=== PATIENT | female | born 1940 | race Caucasian/White ===

== ENCOUNTER → 2016-09-13 | Outpatient (CLI) | payer MEDICARE ==
--- NOTE | 2016-09-13 14:08 | RAD ---
Exam: PA and lateral chest radiograph History: COPD. Comparison: CT chest 12/31/2009. Findings: Cardiac silhouette appears within normal limits for size. No pneumothorax or pleural effusion is seen. There is accentuation of interstitial markings, suggesting fibrotic change. There is also evidence of multiple small pulmonary nodules which were seen on previous study. It is somewhat difficult to assess change in size of nodules given differences in modality, but it does appear that the pulmonary nodules are less evident on current examination than on comparison study. Left shoulder arthroplasty is seen. Impression: 1. Increased interstitial markings, suggesting fibrotic change. 2. Multiple bilateral pulmonary nodules which were seen on previous study, although definitive comparison is difficult given differences in modality. The nodules may be less apparent on current examination than on previous. CT imaging could be performed if clinically indicated.
== END | disposition home or self-care (01) ==
LOC: DXRADRC 13:47
PROVIDERS: ATTEND Physician Assistant Medical
DX: J44.9 Chronic obstructive pulmonary disease, unspecified (principal)
CPT/HCPCS: 71020

== ENCOUNTER → 2016-09-28 | Outpatient (CLI) | payer MEDICARE ==
--- NOTE | 2016-09-28 11:01 | RAD ---
Indication lung nodule. Note is made of a plain film examination of the chest 09/13/[address] examination of the chest 12/31/2009. Noncontrast imaging through the chest was performed. Imaging through the upper abdomen is unremarkable. Occasional pleural calcifications are noted suggesting prior asbestos exposure. The thoracic aorta appears grossly normal. Moderately extensive coronary artery calcification is noted. There is no significant hilar or mediastinal adenopathy. Multiple calcified mediastinal lymph nodes are noted. The main pulmonary artery is slightly prominent. Clinical correlation as to the possibility for pulmonary hypertension advised. There are multiple pulmonary nodules. The nodules, however, are less conspicuous than on the previous exam. The lack of any enlargement and the overall diminution in size are compatible with a benign process. Nodules may be a reflection of granulomatous disease. Scattered areas of pleural-parenchymal scarring are noted appearing similar to also somewhat improved relative to the previous study. A definite acute or new finding is not seen. IMPRESSION: Chronic changes in the chest. Pulmonary nodules are seen but they are less conspicuous than on the examination almost 8 years ago. Scattered areas of pleural-parenchymal scarring are seen. No acute finding apparent in the chest PQRS Compliance Statement: One or more of the following individualized dose reduction techniques were utilized for this examination: 1. Automated exposure control 2. Adjustment of the mA and/or kV according to patient size 3. Use of iterative reconstruction technique
== END | disposition home or self-care (01) ==
LOC: CT 10:17
PROVIDERS: ATTEND Physician Assistant Medical
DX: J98.4 Other disorders of lung (principal); R91.8 Other nonspecific abnormal finding of lung field
CPT/HCPCS: 71250

== ENCOUNTER → 2016-11-16 | Outpatient (CLI) | payer MEDICARE ==
--- NOTE | 2016-11-16 12:39 | RAD ---
Indication chronic renal disease. Grayscale imaging targeted to the kidneys was performed. No similar imaging is available. The right kidney measures 12 x 4 x 3.8 cm. There are several cysts seen associated with the right kidney the largest measuring approximately 4.5 cm. No definite solid mass or hydronephrosis is seen. The left kidney measures 9.5 x 4.6 x 3.7 cm. There are several cysts seen associated with the left kidney but overall smaller than on the right. The largest measuring approximately 1.3 cm. The urinary bladder appears grossly normal. IMPRESSION: Bilateral renal cysts.
== END | disposition home or self-care (01) ==
LOC: US 10:51
PROVIDERS: ATTEND Internal Medicine Nephrology
DX: N18.2 Chronic kidney disease, stage 2 (mild) (principal); N28.1 Cyst of kidney, acquired
CPT/HCPCS: 76770

== ENCOUNTER → 2017-01-19 | Outpatient (CLI) | payer MEDICARE ==
--- NOTE | 2017-01-19 16:04 | RAD ---
AP oblique and lateral views of the lumbar spine were obtained as well as a coned view targeted to the lumbosacral junction. There is very minimal anterolisthesis of L4 relative to L5. There is some disc space narrowing with associated degenerative endplate changes at L2-3. Mild disc space narrowing is seen at L1-2, L4-5 and L5-S1. Vertebral height is well maintained. There are facet degenerative changes in the mid and lower lumbar spine. An acute bony finding is not seen. Vascular calcification is noted. IMPRESSION: Spondylitic changes. No acute finding seen
--- NOTE | 2017-01-19 16:10 | RAD ---
Indication pain. AP and lateral views of the sacrococcyx were obtained. No bony abnormality is seen.
== END | disposition home or self-care (01) ==
LOC: DXRADRC 15:41
PROVIDERS: ATTEND Physician Assistant Medical
DX: M54.41 Lumbago with sciatica, right side (principal)
CPT/HCPCS: 72110; 72220

== ENCOUNTER 2018-12-12 13:15 | Inpatient (IN) | payer MEDICARE ==
[2018-12-12] VITALS (8 sets, daily range): BP systolic 81–131; BP diastolic 43–59
[~2018-12-12] VITALS: Ht 149.9 cm; Wt 75.9 kg
[2018-12-12] MEDS ORDERED: NORMAL SALINE IV SCH (14:11)
[2018-12-12 14:20] LABS: BASO # 0.1 x10^3/uL (0.0-0.2); BASO % 1 % (0-3); EOS % 0 % (0-3); HEMATOCRIT 36.3 % (36.0-47.0); HEMOGLOBIN 11.9 g/dL (12.0-15.5); LYMPH # 1.4 x10^3/uL (1.0-4.8); LYMPH % 6 % (24-48); MEAN CORPUSCULAR HEMOGLOBIN 31 pg (25-35); MEAN CORPUSCULAR HGB CONC 33 g/dL (31-37); MEAN CORPUSCULAR VOLUME 93 fL (79-100); MONO # 2.2 x10^3/uL (0.0-1.1); MONO % 10 % (0-9); NEUT % 83 % (31-73); PLATELET COUNT 197 x10^3/uL (140-400); RED BLOOD COUNT 3.89 x10^6/uL (3.50-5.40); RED CELL DISTRIBUTION WIDTH 14.6 % (11.5-14.5); WHITE BLOOD COUNT 22.8 x10^3/uL (4.0-11.0)
[2018-12-12 14:32] LABS: ALBUMIN 2.6 g/dL (3.4-5.0); ALBUMIN/GLOBULIN RATIO 0.6 (1.0-1.7); CALCIUM 9.5 mg/dL (8.5-10.1); CREATININE 1.8 mg/dL (0.6-1.0); GFR 27.1; POTASSIUM 3.9 mmol/L (3.5-5.1); TOTAL BILIRUBIN 0.7 mg/dL (0.2-1.0); TOTAL PROTEIN 7.1 g/dL (6.4-8.2)
--- NOTE | 2018-12-12 14:55 | RAD ---
Chest radiograph 12/12/2018 2:11 PM INDICATION: Hypotension, altered mental status COMPARISON: CT chest September 28, 2016 TECHNIQUE: Portable upright frontal view of the chest is provided. FINDINGS: The cardiomediastinal silhouette is within normal limits. Perihilar interstitial changes may reflect interstitial edema versus interstitial pneumonitis. Bandlike density in the left upper lobe is stable dating back to 2016 and most favor scarring. Trace right pleural effusion. No pneumothorax. Left shoulder arthroplasty is identified. IMPRESSION: Bilateral perihilar interstitial prominence may reflect interstitial edema versus interstitial pneumonitis. Recommend follow-up to resolution. Electronically signed by: Mona Romero MD (12/12/2018 2:51 PM) [email or web address]
[2018-12-12] MEDS ORDERED: PIP/TAZO PER PHARMACY MC PRN (15:45)
--- NOTE | 2018-12-12 15:53 | EKG ---
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
[2018-12-12] MEDS: PIPERACILLIN/TAZOBACTAM 2.25 GM in IV NORMAL SALINE 50ML 50 ML IV SCH ×2 (16:05→22:12)
[2018-12-12 16:17] LABS: BACTERIA,URINE FEW /HPF (0-FEW); BILIRUBIN,URINE NEG (NEG); CLARITY,URINE HAZY; COLOR,URINE YELLOW; GLUCOSE,URINE NEG (NEG); NITRITE,URINE POS (NEG); UROBILINOGEN,URINE 0.2 mg/dL (0.2 mg/dL)
[2018-12-12 16:18] LABS: SQUAMOUS EPITHELIAL CELL,UR OCC /LPF
--- NOTE | 2018-12-12 16:46 | PHYS DOC ---
Past History Past Medical History: COPD, Hypertension, TIA, UTI, Other Past Surgical History: Appendectomy, Cholecystectomy, Other Alcohol Use: None Drug Use: None Adult General Chief Complaint Chief Complaint: ALTERED MENTAL STATUS HPI HPI Patient is a 78 year old female who presents with complaint of generalized weakness and lethargy. The patient states that her symptoms started 3 days ago and significant only worsened today. The patient was brought to the emergency department by private vehicle after being found to be very weak. Patient states that she is unable stand under her own power. Does admit shortness of breath but denies pain in her chest or abdomen. Has history of COPD. States that she has not been able to get up and eat or drink anything. Review of Systems Review of Systems Constitutional: Generalized weakness, body aches[] Eyes: Denies change in visual acuity, redness, or eye pain [] HENT: Denies nasal congestion or sore throat [] Respiratory: Shortness of breath[] Cardiovascular: Denies chest pain or edema[] GI: Nausea, denies abdominal pain, vomiting, bloody stools or diarrhea [] : Dysuria, urinary frequency[] Musculoskeletal: Denies back pain or joint pain [] Integument: Denies rash or skin lesions [] Neurologic: Lightheadedness, denies focal weakness or sensory changes [] All other systems were reviewed and found to be within normal limits, except as documented in this note. Current Medications Current Medications Current Medications Medications (Trade) Dose Ordered Sig/Nicolette Start Time Stop Time Status Last Admin Dose Admin Piperacillin Sod/ Tazobactam Sod (Zosyn Per Pharmacy) 1 each PRN DAILY PRN 12/12/18 15:45 Piperacillin Sod/ Tazobactam Sod 2.25 gm/Sodium Chloride 50 ml @ 100 mls/hr Q6H 12/12/18 16:00 Sodium Chloride 1,440 ml @ 1,440 mls/hr Q1H 12/12/18 14:11 Allergies Allergies Allergies Coded Allergies Type Severity Reaction Last Updated Verified No Known Drug Allergies 12/12/18 No Physical Exam Physical Exam Constitutional: Drowsy, diaphoretic, hypotensive, appears acutely ill. [] HENT: Normocephalic, atraumatic, bilateral external ears normal, oropharynx moist, no oral exudates, nose normal. [] Eyes: PERRLA, EOMI, conjunctiva normal, no discharge. [] Neck: Normal range of motion, no tenderness, supple, no stridor. [] Cardiovascular:Heart rate regular rhythm, no murmur [] Lungs & Thorax: Bilateral breath sounds clear to auscultation [] Abdomen: Bowel sounds normal, soft, no tenderness, no masses, no pulsatile masses. [] Skin: Warm, dry, no erythema, no rash. [] Back: No tenderness, no CVA tenderness. [] Extremities: No tenderness, no cyanosis, no clubbing, ROM intact, no edema. [] Neurologic: Alert and oriented X 3, normal motor function, normal sensory function, no focal deficits noted. [] Current Patient Data Vital Signs Vital Signs Date Time Temp Pulse Resp B/P (MAP) Pulse Ox O2 Delivery O2 Flow Rate FiO2 12/12/18 15:04 69 18 97/52 (67) 96 Room Air 12/12/18 13:57 98.3 Lab Results Laboratory Tests Test 12/12/18 14:02 12/12/18 14:25 12/12/18 15:42 White Blood Count 22.8 x10^3/uL (4.0-11.0) H Red Blood Count 3.89 x10^6/uL (3.50-5.40) Hemoglobin 11.9 g/dL (12.0-15.5) L Hematocrit 36.3 % (36.0-47.0) Mean Corpuscular Volume 93 fL (79-100) Mean Corpuscular Hemoglobin 31 pg (25-35) Mean Corpuscular Hemoglobin Concent 33 g/dL (31-37) Red Cell Distribution Width 14.6 % (11.5-14.5) H Platelet Count 197 x10^3/uL (140-400) Neutrophils (%) (Auto) 83 % (31-73) H Lymphocytes (%) (Auto) 6 % (24-48) L Monocytes (%) (Auto) 10 % (0-9) H Eosinophils (%) (Auto) 0 % (0-3) Basophils (%) (Auto) 1 % (0-3) Neutrophils # (Auto) 19.0 x10^3uL (1.8-7.7) H Lymphocytes # (Auto) 1.4 x10^3/uL (1.0-4.8) Monocytes # (Auto) 2.2 x10^3/uL (0.0-1.1) H Eosinophils # (Auto) 0.0 x10^3/uL (0.0-0.7) Basophils # (Auto) 0.1 x10^3/uL (0.0-0.2) Platelet Estimate Pending Sodium Level 137 mmol/L (136-145) Potassium Level 3.9 mmol/L (3.5-5.1) Chloride Level 103 mmol/L (98-107) Carbon Dioxide Level 18 mmol/L (21-32) L Anion Gap 16 (6-14) H Blood Urea Nitrogen 36 mg/dL (7-20) H Creatinine 1.8 mg/dL (0.6-1.0) H Estimated GFR (Cockcroft-Gault) 27.1 BUN/Creatinine Ratio 20 (6-20) Glucose Level 148 mg/dL (70-99) H Lactic Acid Level 2.2 mmol/L (0.4-2.0) H Calcium Level 9.5 mg/dL (8.5-10.1) Total Bilirubin 0.7 mg/dL (0.2-1.0) Aspartate Amino Transferase (AST) 19 U/L (15-37) Alanine Aminotransferase (ALT) 21 U/L (14-59) Alkaline Phosphatase 108 U/L (46-116) Total Protein 7.1 g/dL (6.4-8.2) Albumin 2.6 g/dL (3.4-5.0) L Albumin/Globulin Ratio 0.6 (1.0-1.7) L Glucose (Fingerstick) 149 mg/dL (70-99) H Urine Collection Type U cath Urine Color Yellow Urine Clarity Hazy Urine pH 6.0 Urine Specific Doon 1.015 Urine Protein 100 mg/dl (NEG-TRACE) Urine Glucose (UA) Neg mg/dL (NEG) Urine Ketones (Stick) Trace mg/dL (NEG) Urine Blood Large (NEG) Urine Nitrite Pos (NEG) Urine Bilirubin Neg (NEG) Urine Urobilinogen Dipstick 0.2 mg/dL (0.2 mg/dL) Urine Leukocyte Esterase Small (NEG) Urine RBC 1-2 /HPF (0-2) Urine WBC 11-20 /HPF (0-4) Urine Squamous Epithelial Cells Occ /LPF Urine Bacteria Few /HPF (0-FEW) Urine Mucus Slight /LPF EKG EKG Interpreted by me: Heart rate 71, sinus rhythm, normal intervals, PVC noted, normal axis, no acute ST/T-wave abnormalities present[] Radiology/Procedures Radiology/Procedures [address] [id number] IMAGING REPORT Signed PATIENT: PADMINI RO ACCOUNT: [id number] : 1940 LOCATION: ER AGE: 78 SEX: F EXAM STATUS: PRE ER ORD. PHYSICIAN: GABBIE MARES MD REASON: hypotension, altered mental status PROCEDURE: PORTABLE CHEST 1V Chest radiograph 12/12/2018 2:11 PM INDICATION: Hypotension, altered mental status COMPARISON: CT chest September 28, 2016 TECHNIQUE: Portable upright frontal view of the chest is provided. FINDINGS: The cardiomediastinal silhouette is within normal limits. Perihilar interstitial changes may reflect interstitial edema versus interstitial pneumonitis. Bandlike density in the left upper lobe is stable dating back to 2016 and most favor scarring. Trace right pleural effusion. No pneumothorax. Left shoulder arthroplasty is identified. IMPRESSION: Bilateral perihilar interstitial prominence may reflect interstitial edema versus interstitial pneumonitis. Recommend follow-up to resolution. Electronically signed by: Bob Burdick MD (12/12/2018 2:51 PM) [id number] DICTATED AND SIGNED BY: BOB BURDICK MD DATE: 12/12/18 1451 CC: GABBIE MARES MD; MARIA GUADALUPE SANTANA ~ [] Course & Med Decision Making Course & Med Decision Making Pertinent Labs and Imaging studies reviewed. (See chart for details) Patient was started on a 30 mL per kilo bolus of IV fluids based off of ideal weight. The patient was found have evidence of urinary tract infection. P atient's lung findings on x-ray do not appear to be consistent with a typical pneumonia. Blood work shows evidence of elevated lactate level, this patient does meet criteria for severe sepsis at this time. Patient's blood pressure has improved with 30 mL per kilo bolus. Patient started on IV Zosyn in the emergency department. Patient is acutely ill and requires advanced care in an inpatient setting. I spoke with Dr. Grissom who accepted care of patient in hospital. He recommended addition of IV Zyvox which was initiated in the emergency department. Will admit patient to ICU for further care. Critical care time excluding procedures: 50 minutes Dragon Disclaimer Dragon Disclaimer This electronic medical record was generated, in whole or in part, using a voice recognition dictation system. Departure Departure: Impression: Primary Impression: Severe sepsis Additional Impressions: Urinary tract infection COPD (chronic obstructive pulmonary disease) Chronic kidney disease Disposition: ADMITTED INPATIENT Admitting Physician: La Grissom Condition: GUARDED Referrals: MARIA GUADALUPE SANTANA (PCP) Problem Qualifiers Additional Impressions: Urinary tract infection Urinary tract infection type: site unspecified Hematuria presence: without hematuria Qualified Codes: N39.0 - Urinary tract infection, site not sp ecified COPD (chronic obstructive pulmonary disease) COPD type: unspecified COPD Qualified Codes: J44.9 - Chronic obstructive pulmonary disease, unspecified Chronic kidney disease Chronic kidney disease stage: unspecified stage Qualified Codes: N18.9 - Chronic kidney disease, unspecified GABBIE MARES MD Dec 12, 2018 16:46
[2018-12-12] MEDS ORDERED: LEVO88TA4 PO (18:23)
[2018-12-12] MEDS ORDERED: AMLO5TAB4 PO (18:23)
[2018-12-12] MEDS ORDERED: LOSA100T14 PO (18:23)
[2018-12-12] MEDS ORDERED: LOVA40TA2 PO (18:23)
[2018-12-12] MEDS ORDERED: LABE100T5 PO (18:23)
[2018-12-12] MEDS: IV NORMAL SALINE 1,000ML 1,000 ML IV SCH (18:30)
[2018-12-12] MEDS: IPRATRPIUM/ALBUTEROL 0.5/2.5MG 3 ML NEBU. NEB SCH (20:12)
[2018-12-12 21:53] LABS: % BASOS 1 % (0-3)
[2018-12-12 21:54] LABS: % LYMPHS 9 % (24-48); % MONOS 10 % (0-10); % SEGS 80 % (35-66)
[2018-12-12 21:56] LABS: ANISOCYTOSIS SLIGHT; PLT ESTIMATE ADEQUATE (ADEQUATE); POLYCHROMASIA SLIGHT
[2018-12-12] MEDS: ATORVASTATIN CALCIUM 10 MG TABLET. PO SCH (22:02)
[2018-12-12] MEDS: LABETALOL HCL 100 MG TABLET PO SCH (22:09)
[2018-12-13] VITALS (17 sets, daily range): BP systolic 98–155; BP diastolic 46–65
[2018-12-13] MEDS ORDERED: ACET500T68 PO (00:16)
[2018-12-13] MEDS ORDERED: TIOT18CA IH ×2 (00:16→11:56)
[2018-12-13] MEDS: ACETAMINOPHEN 325 MG TABLET PO PRN (00:23)
[2018-12-13] MEDS: IPRATRPIUM/ALBUTEROL 0.5/2.5MG 3 ML NEBU. NEB SCH ×6 (02:04→20:00)
[2018-12-13] MEDS: PIPERACILLIN/TAZOBACTAM 2.25 GM in IV NORMAL SALINE 50ML 50 ML IV SCH ×4 (05:21→22:11)
[2018-12-13] MEDS: LEVOTHYROXINE 88 MCG TABLET PO SCH (05:21)
[2018-12-13 06:10] LABS: BASO # 0.1 x10^3/uL (0.0-0.2); BASO % 0 % (0-3); EOS # 0.1 x10^3/uL (0.0-0.7); EOS % 1 % (0-3); HEMATOCRIT 32.3 % (36.0-47.0); HEMOGLOBIN 10.8 g/dL (12.0-15.5); LYMPH # 1.5 x10^3/uL (1.0-4.8); LYMPH % 9 % (24-48); MEAN CORPUSCULAR HEMOGLOBIN 31 pg (25-35); MEAN CORPUSCULAR HGB CONC 33 g/dL (31-37); MEAN CORPUSCULAR VOLUME 93 fL (79-100); MONO # 2.2 x10^3/uL (0.0-1.1); MONO % 13 % (0-9); NEUT # 13.7 x10^3uL (1.8-7.7); NEUT % 78 % (31-73); PLATELET COUNT 172 x10^3/uL (140-400); RED BLOOD COUNT 3.47 x10^6/uL (3.50-5.40); RED CELL DISTRIBUTION WIDTH 14.3 % (11.5-14.5); WHITE BLOOD COUNT 17.5 x10^3/uL (4.0-11.0)
[2018-12-13 06:22] LABS: ALBUMIN 2.2 g/dL (3.4-5.0); ALBUMIN/GLOBULIN RATIO 0.6 (1.0-1.7); CALCIUM 8.5 mg/dL (8.5-10.1); CREATININE 1.5 mg/dL (0.6-1.0); GFR 33.4; POTASSIUM 3.5 mmol/L (3.5-5.1); TOTAL BILIRUBIN 0.6 mg/dL (0.2-1.0); TOTAL PROTEIN 6.1 g/dL (6.4-8.2)
[2018-12-13] MEDS: IV NORMAL SALINE 1,000ML 1,000 ML IV SCH ×2 (06:30→14:00)
[2018-12-13] MEDS: LACTOBACILLUS RHAMNOSUS GG 1 CAPSULE. PO SCH ×2 (08:39→20:28)
[2018-12-13] MEDS: LABETALOL HCL 100 MG TABLET PO SCH ×2 (08:41→20:28)
[2018-12-13] MEDS: ALBUTEROL SULFATE 2.5 MG/3 ML NEBU. NEB PRN (08:52)
[2018-12-13] MEDS ORDERED: [UNRECOGNIZED DRUG - CODE] OP (11:56)
[2018-12-13] MEDS ORDERED: NYST15PO9 TP (11:56)
[2018-12-13] MEDS: TETRAHYDROZOLINE 0.05% OPHTH SOLUTION 15ML BOTTLE. OU PRN (14:49)
--- NOTE | 2018-12-13 16:22 | HP ---
ADMIT DATE: 12/12/2018 HISTORY OF PRESENT ILLNESS: The patient is an 78-year-old female patient who presented to the Emergency Room with generalized weakness and lethargy. She stated that her symptoms started about 3 days ago and has worsened on the day of admission. She was brought to the Emergency Department by a private vehicle after being found to be very weak. She did state that she is unable to stand under her own power. She does admit shortness of breath, but denies pain in her chest or abdomen and has a history of COPD. The patient said that she has been so weak that she was unable to get up and eat or drink anything. She was evaluated in the Emergency Room, was found to have marked leukocytosis with a white cell count of 20,000. Her chest x-ray showed bilateral perihilar interstitial prominence, may reflect interstitial edema versus interstitial pneumonitis. She was given IV fluid and was treated for possible pneumonitis as well as urinary tract infection and was admitted to the ICU for close observation. PAST MEDICAL HISTORY: Significant for hypertension, hyperlipidemia, type 2 diabetes, chronic kidney disease stage 3, hypothyroidism, TIA, chronic obstructive pulmonary disease and generalized osteoarthritis. PAST SURGICAL HISTORY: Significant for appendectomy, cholecystectomy, cataract extraction. She also has left rotator cuff tear repair, left foot surgery. She also had surgery on her right hammertoe, right inguinal hernia repair. She has had a perforated bowel for which she underwent diverting colostomy. Patient also underwent a colostomy reversal, esophagogastroduodenoscopy and colonoscopy. ALLERGIES: She has apparently no known drug allergies. MEDICATIONS: She is currently on following medications: She is on Spiriva HandiHaler 1 inhalation once a day. She is on lovastatin 40 mg at bedtime, labetalol 100 mg twice a day, amlodipine besylate 5 mg once a day, losartan potassium 100 mg daily, acetaminophen 1000 mg at bedtime. She is on tetrahydrozoline, Visine 1 drop to both eyes twice a day, levothyroxine 88 mcg once a day, antifungal 1 application topically twice a day. FAMILY HISTORY: She has 1 older sister and 2 younger sisters and all healthy. Her brother at the age of 56 because of myocardial infarction. Her father at age of 69 because of ruptured abdominal aortic aneurysm and mother at age of 56 because of myocardial infarction. SOCIAL HISTORY: She lives alone. She has 2 sons that were , the oldest and youngest. She has 1 son that is still alive and healthy and 1 daughter that she is apparently moving back to live around her. 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 She quit long time ago. 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 REVIEW OF SYSTEMS: The patient had had bilateral cataract extraction, but denied any glaucoma or macular degeneration. Denied any earache, tinnitus or sensorineural deafness. Denied any nosebleeds, stuffy nose or postnasal drip. Denied any sore throat, sore tongue, toothache, hoarseness of voice or difficulty swallowing, although she did have esophageal stricture that was dilated by Dr. Lawler. Denied any nausea, vomiting, diarrhea or constipation. Denied any hematemesis, melena or hematochezia. Denied any dysuria, frequency or hematuria. Denied any chest pain, shortness of breath, orthopnea or paroxysmal nocturnal dyspnea. Denied any cough, phlegm or hemoptysis. PHYSICAL EXAMINATION: GENERAL: On arrival to the Emergency Room, the patient was somewhat pale, but no jaundice, cyanosis, or thyromegaly. No jugular venous distension. No lower limb edema. VITAL SIGNS: Her heart rate was 77, blood pressure was 87/51, temperature was 98.2, respiratory rate was 30 and oxygen saturation was 93% on room air. HEENT: Normocephalic, atraumatic. NECK: Supple. HEART: Showed normal first and second heart sounds. No gallop, rub or murmur. CHEST: Shows central trachea, equally reduced expansion, reduced air entry, vesicular sounds, bilateral scattered rhonchi. I could not appreciate any crepitation. ABDOMEN: Distended, soft, nontender. No guarding or rigidity. No organomegaly. All hernial orifice intact. Bowel sounds normal. NEUROLOGIC: She was awake, alert, responding appropriately. All cranial nerves are intact. LABORATORY DATA: While in the Emergency Room, she has had lab work done, showed that her white cell count was 22,800, hemoglobin 11.9, hematocrit 36.3, MCV 93, and platelet count of 197,000 with normal manual differential. Her chemistry showed a serum sodium 137, potassium 3.9, chloride 103, bicarbonate 18, anion gap of 16, BUN of 36, creatinine 1.8, estimated GFR was 27 mL and her glucose was 149, lactic acid was 2.2. Calcium was 9.5. Total bilirubin, AST, ALT, alkaline phosphatase were normal. Total protein was 7.1, albumin was 2.6. Her urinalysis showed the urine was yellow, hazy with a pH of 6, specific gravity 1.015 with large amount of protein. The urine was negative for glucose, trace of ketones, large amount of blood. IMPRESSION: In summary, this is an 78-year-old female patient who was admitted with altered mental status, diagnosed with community-acquired pneumonia, urinary tract infection, severe sepsis, chronic obstructive pulmonary disease exacerbation, on chronic kidney disease. We will continue with IV antibiotic. Continue with all her other medications. I will follow her closely and repeat her lab work and adjust medication accordingly. KEON MAYA MD DR: CADEN/maisha JOB#: [id number] / [id number]
[2018-12-13] MEDS: ATORVASTATIN CALCIUM 10 MG TABLET. PO SCH (20:28)
[2018-12-13] MEDS: NYSTATIN TOPICAL POWDER 15GM BOTTLE. TP SCH (20:30)
--- NOTE | 2018-12-14 00:05 | PN ---
DATE: 12/13/2018 SUBJECTIVE: The patient is resting slightly propped up, continued to be slightly tachypneic, but denied any chest pain. PHYSICAL EXAMINATION: GENERAL: On examining her, she was slightly pale, no jaundice, cyanosis, or thyromegaly. No jugular venous distension. No limb edema. VITAL SIGNS: Her heart rate was 74, blood pressure was 109/49, temperature was 97.5, respiratory rate was 24, and oxygen saturation was 95% on 2 liters of oxygen. HEAD, EYES, EARS, NOSE AND THROAT: Showed normocephalic, atraumatic. NECK: Supple. HEART: Showed normal first and second heart sounds. No gallop, rub or murmur. CHEST: Shows central trachea, equal bilateral expansion, and air entry, vesicular sounds with scattered rhonchi and bilateral basal crepitation, more so on the right than left. ABDOMEN: Distended, soft, and nontender. NEUROLOGIC: She was awake, alert, responding appropriately. Cranial nerves intact. She moves extremities without difficulty. Her intake was 3500, output was 550. LABORATORY DATA: As of this morning, her white cell count of 17,500, hemoglobin 10.8, hematocrit 32.3, MCV 93, and platelet count of 172,000. Serum sodium was 140, potassium 3.5, chloride 108, bicarbonate 19, anion gap of 13, her BUN of 31, creatinine 1.5, estimated GFR was 33 mL per minute. Her glucose was 22, calcium was 8.5. Total bilirubin, AST, ALT, alkaline phosphatase were normal. Total protein was 6.1, albumin 2.2. Urinalysis showed the urine was positive for nitrites, 11-20 wbc's and very few bacteria. Apparently, her blood culture showed gram-negative rods in 1/4 bottles. ASSESSMENT: The patient probably has severe sepsis, probably pneumonia, urinary tract infection, COPD exacerbation, and acute on chronic kidney injury. We will continue with IV Zosyn for now given bacteria is gram negative. Continue with all other medications and repeat all her lab work tomorrow and we will adjust antibiotics according to the results and sensitivity. KEON MAYA MD DR: CADEN/maisha JOB#: [id number] / [id number]
[2018-12-14] MEDS: ACETAMINOPHEN 325 MG TABLET PO PRN ×2 (02:42→21:48)
[2018-12-14 03:28] VITALS: BP 118/65
[2018-12-14] MEDS: ALBUTEROL SULFATE 2.5 MG/3 ML NEBU. NEB PRN (03:45)
[2018-12-14] MEDS: PIPERACILLIN/TAZOBACTAM 2.25 GM in IV NORMAL SALINE 50ML 50 ML IV SCH ×4 (03:47→21:35)
[2018-12-14] MEDS: LEVOTHYROXINE 88 MCG TABLET PO SCH (06:00)
[2018-12-14 06:20] LABS: HEMATOCRIT 30.8 % (36.0-47.0); HEMOGLOBIN 10.2 g/dL (12.0-15.5); RED BLOOD COUNT 3.27 x10^6/uL (3.50-5.40); RED CELL DISTRIBUTION WIDTH 14.8 % (11.5-14.5); WHITE BLOOD COUNT 12.2 x10^3/uL (4.0-11.0)
[2018-12-14 06:30] VITALS: BP 125/64
[2018-12-14 06:45] LABS: ALBUMIN/GLOBULIN RATIO 0.5 (1.0-1.7); CALCIUM 8.6 mg/dL (8.5-10.1); CREATININE 1.3 mg/dL (0.6-1.0); GFR 39.4; POTASSIUM 3.6 mmol/L (3.5-5.1); TOTAL BILIRUBIN 0.5 mg/dL (0.2-1.0); TOTAL PROTEIN 5.9 g/dL (6.4-8.2)
[2018-12-14 08:08] VITALS: BP 114/64
[2018-12-14] MEDS: LACTOBACILLUS RHAMNOSUS GG 1 CAPSULE. PO SCH ×2 (08:53→20:43)
[2018-12-14] MEDS: TETRAHYDROZOLINE 0.05% OPHTH SOLUTION 15ML BOTTLE. OU PRN (08:53)
[2018-12-14] MEDS: NYSTATIN TOPICAL POWDER 15GM BOTTLE. TP SCH ×2 (08:53→21:34)
[2018-12-14] MEDS ORDERED: NON FORMULARY ITEM (Tiotropium Bromide (Spiriva) 1 CAP) IH SCH (09:00)
[2018-12-14] MEDS: IPRATRPIUM/ALBUTEROL 0.5/2.5MG 3 ML NEBU. NEB SCH ×4 (10:08→20:18)
[2018-12-14] MEDS: LABETALOL HCL 100 MG TABLET PO SCH ×2 (10:24→20:43)
[2018-12-14 11:00] VITALS: BP 135/69
[2018-12-14] MEDS: BENZONATATE 100 MG CAPSULE. PO SCH ×3 (12:41→20:43)
[2018-12-14] MEDS ORDERED: POTASSIUM CHLORIDE 20 MEQ TABLET.ER. PO ONE (13:00)
[2018-12-14] MEDS ORDERED: FUROSEMIDE 20 MG/2 ML VIAL IVP ONE (13:00)
--- NOTE | 2018-12-14 16:18 | PN ---
DATE: 12/14/2018 SUBJECTIVE: The patient was resting slightly propped up, continued to be tachypneic and unable to finish sentence, hypoxic when she is without oxygen. PHYSICAL EXAMINATION: GENERAL: When I examined her, she looked pale, but no jaundice, cyanosis, or thyromegaly. No jugular venous distension. No limb edema. VITAL SIGNS: Her heart rate was 77, blood pressure was 135/69, temperature was 97.9, respiratory rate was 18 and oxygen saturation was 98% on 2 liters of oxygen by nasal cannula. HEAD, EYES, EARS, NOSE AND THROAT: Showed normocephalic, atraumatic. NECK: Supple. HEART: Showed normal first and second heart sounds. No gallop, rub or murmur. CHEST: Clear to auscultation. No crepitation or rhonchi. Chest shows central trachea, equal bilateral expansion, air entry, vesicular sounds with crepitation in both sides posteriorly, more on the right than left. She has also scattered rhonchi. ABDOMEN: Distended, soft, nontender. NEUROLOGIC: She is awake, alert, responding appropriately. All cranial nerves intact. She moves extremities without difficulty. Her intake is 3500, output was 550. LABORATORY DATA: Showed a white cell count is down to 12,200, hemoglobin 10, hematocrit 30, MCV 94 and platelet count of 182,000. Her chemistry showed a serum sodium 141, potassium 3.6, chloride 101, bicarbonate 20, anion gap of 11, BUN 22, creatinine 1.3, estimated GFR was 39 mL per minute. Her glucose was 142, calcium was 8.6. Total bilirubin, AST, ALT were normal. Alkaline phosphatase slightly elevated. Total protein was 5.9, albumin was 2. Urinalysis was positive for nitrite as well as small amount of leukocyte esterase with 11-20 wbc's, 1-2 rbc's, and very few bacteria. Her chest x-ray showed that she has bilateral perihilar interstitial prominence and reflect interstitial edema versus interstitial pneumonitis. ASSESSMENT: 1. Severe sepsis, likely due to pneumonia as well as urinary tract infection. 2. Chronic obstructive pulmonary disease exacerbation. 3. Acute on chronic hypoxic respiratory failure. 4. Acute on chronic kidney injury. Her blood culture has grown gram-negative rods seen in 2/4 bottles. The identification and sensitivity is still pending. PLAN: My plan is to add steroids and I will add Lasix 20 mg with 20 mEq of potassium chloride now. We will consult the zipper setter lockstitch. We also ordered an echocardiogram and we will decide any further management according to her response. KEON MAYA MD DR: CADEN/maisha JOB#: [id number] / [id number]
[2018-12-14 16:30] VITALS: BP 124/72
[2018-12-14] MEDS: ATORVASTATIN CALCIUM 10 MG TABLET. PO SCH (20:43)
[2018-12-14] MEDS ORDERED: diphenhydrAMINE HCL 25 MG CAPSULE PO ONE (21:47)
[2018-12-14] MEDS: diphenhydrAMINE HCL 25 MG CAPSULE PO PRN (21:48)
[2018-12-15 03:00] VITALS: BP 142/70
[2018-12-15] MEDS: PIPERACILLIN/TAZOBACTAM 2.25 GM in IV NORMAL SALINE 50ML 50 ML IV SCH ×4 (04:56→22:11)
[2018-12-15] MEDS: IPRATRPIUM/ALBUTEROL 0.5/2.5MG 3 ML NEBU. NEB SCH ×3 (05:01→16:39)
[2018-12-15] MEDS: LEVOTHYROXINE 88 MCG TABLET PO SCH (06:07)
[2018-12-15 06:35] LABS: HEMATOCRIT 35.7 % (36.0-47.0); HEMOGLOBIN 11.7 g/dL (12.0-15.5); RED BLOOD COUNT 3.8 x10^6/uL (3.50-5.40); RED CELL DISTRIBUTION WIDTH 14.6 % (11.5-14.5); WHITE BLOOD COUNT 11.3 x10^3/uL (4.0-11.0)
[2018-12-15 06:41] LABS: ALBUMIN 2.5 g/dL (3.4-5.0); ALBUMIN/GLOBULIN RATIO 0.5 (1.0-1.7); CALCIUM 9.3 mg/dL (8.5-10.1); CREATININE 1.3 mg/dL (0.6-1.0); GFR 39.4; POTASSIUM 3.3 mmol/L (3.5-5.1); TOTAL BILIRUBIN 0.5 mg/dL (0.2-1.0); TOTAL PROTEIN 7.1 g/dL (6.4-8.2)
[2018-12-15] MEDS ORDERED: POTASSIUM CHLORIDE 20 MEQ TABLET.ER. PO ONE (07:30)
[2018-12-15] MEDS: FUROSEMIDE 20 MG/2 ML VIAL IVP SCH (07:41)
[2018-12-15] MEDS: ACETAMINOPHEN 325 MG TABLET PO PRN (07:42)
[2018-12-15] MEDS: LACTOBACILLUS RHAMNOSUS GG 1 CAPSULE. PO SCH ×2 (07:42→21:06)
[2018-12-15] MEDS: LABETALOL HCL 100 MG TABLET PO SCH ×2 (07:42→21:05)
[2018-12-15] MEDS: BENZONATATE 100 MG CAPSULE. PO SCH ×3 (07:42→21:06)
[2018-12-15] MEDS: NYSTATIN TOPICAL POWDER 15GM BOTTLE. TP SCH ×2 (07:43→21:06)
[2018-12-15] MEDS ORDERED: POTASSIUM CHLORIDE 20 MEQ TABLET.ER. PO SCH (08:00)
[2018-12-15 08:11] VITALS: BP 158/67
[2018-12-15] MEDS ORDERED: LOPERAMIDE 2 MG CAPSULE PO PRN (08:15)
[2018-12-15] MEDS: POTASSIUM CHLORIDE 20 MEQ TABLET.ER. PO SCH (08:30)
[2018-12-15 10:00] VITALS: BP 158/67
[2018-12-15] MEDS ORDERED: VANCOMYCIN PER PHARMACY MC PRN (12:45)
[2018-12-15] MEDS ORDERED: VANCOMYCIN 2 GM in IV NORMAL SALINE 500ML 500 ML IV ONE (13:00)
--- NOTE | 2018-12-15 13:01 | RAD ---
Chest radiograph 12/15/2018 8:00 AM INDICATION: Pneumonia COMPARISON: December 12, 2018 TECHNIQUE: Frontal and lateral views of the chest are provided. FINDINGS: The cardiomediastinal silhouette is within normal limits. There is increase interstitial prominence compared to prior examination with bilateral coarse perihilar interstitial changes. There is bibasilar subsegmental atelectasis versus infiltrates. No pneumothorax. Right hilar prominence may be secondary to lymphadenopathy versus vascular prominence, stable. IMPRESSION: There is worsened aeration of the lungs with increased perihilar interstitial prominence with increase in bibasilar interstitial airspace disease. Electronically signed by: Mona Romero MD (12/15/2018 12:58 PM) [id number]
--- NOTE | 2018-12-15 13:09 | PDOC2 ---
CONSULT Date of Admission DATE: 12/15/18 TIME: 13:09 Reason for Consult: Congestive heart failure Referring Physician: Dr. Grissom Chief Complaint Generalized weakness, dyspnea Source: Chart review, Patient Problem List Problems Medical Problems: (1) Chronic kidney disease Status: Acute (2) COPD (chronic obstructive pulmonary disease) Status: Acute (3) Severe sepsis Status: Acute (4) Urinary tract infection Status: Acute History of Present Illness 78-year-old female presented with generalized weakness and fatigue and was diagnosed with community-acquired pneumonia, UTI and sepsis. She was being treated with intravenous antibiotics. She started complaining of worsening dyspnea and was diagnosed with mild congestive heart failure. Her symptoms have improved with intravenous Lasix that she received overnight. She denied any chest pain, palpitations or syncope. 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 She denied any smoking or drug use Current Medications Current Medications Sodium Chloride 1,440 ml @ 1,440 mls/hr Q1H IV Last administered on 12/12/18at 12:55; Start 12/12/18 at 14:11; Stop 12/12/18 at 18:06; Status DC Piperacillin Sod/ Tazobactam Sod (Zosyn Per Pharmacy) 1 each PRN DAILY PRN MC SEE COMMENTS; Start 12/12/18 at 15:45 Piperacillin Sod/ Tazobactam Sod 2.25 gm/Sodium Chloride 50 ml @ 100 mls/hr Q6H IV Last administered on 12/15/18at 09:42; Start 12/12/18 at 16:00 Linezolid 300 ml @ 300 mls/hr 1X STAT IV Last administered on 12/12/18at 17:01; Start 12/12/18 at 16:38; Stop 12/12/18 at 17:37; Status DC Sodium Chloride 1,000 ml @ 100 mls/hr Q10H IV Last administered on 12/13/18at 06:30; Start 12/12/18 at 18:00; Stop 12/13/18 at 15:01; Status DC Albuterol/ Ipratropium (Duoneb) 3 ml RTQID NEB Last administered on 12/13/18 20:00; Start 12/12/18 at 20:15; Stop 12/14/18 at 07:47; Status DC Levothyroxine Sodium (Synthroid) 88 mcg DAILY06 PO Last administered on 12/15/18 06:07; Start 12/13/18 at 06:00 Atorvastatin Calcium (Lipitor) 10 mg QHS PO Last administered on 12/14/18 20:43; Start 12/12/18 at 21:30 Labetalol HCl (Trandate) 100 mg BID PO Last administered on 12/15/18 07:42; Start 12/12/18 at 21:30 Guaifenesin (Mucinex Er) 600 mg BID PO Last administered on 12/15/18 07:42; Start 12/12/18 at 21:30 Acetaminophen (Tylenol) 650 mg PRN Q6HRS PRN PO PAIN / TEMP Last administered on 12/15/18 07:42; Start 12/13/18 at 00:00 Lactobacillus Rhamnosus (Culturelle) 1 cap BID PO Last administered on 12/15/18 07:42; Start 12/13/18 at 09:00 Albuterol Sulfate (Ventolin) 2.5 mg PRN Q4HRS PRN NEB SHORTNESS OF BREATH Last administered on 12/14/18 03:45; Start 12/13/18 at 08:45 Nystatin (Nystop) 1 nayeli BID TP Last administered on 12/15/18 07:43; Start 12/13/18 at 21:00 Tetrahydrozoline HCl (Murine) 1 drop PRN BID PRN OU ITCHING EYES Last administered on 12/14/18 08:53; Start 12/13/18 at 14:30 Non-Formulary Medication (Tiotropium Stirum (Spiriva)) 1 cap DAILY IH ; Start 12/14/18 at 09:00; Stop 12/14/18 at 09:00; Status DC Albuterol/ Ipratropium (Duoneb) 3 ml RTQID NEB Last administered on 12/15/18 10:45; Start 12/13/18 at 16:00 Benzonatate (Tessalon Perle) 100 mg [id number] PO Last administered on 12/15/18 07:42; Start 12/14/18 at 12:30 Furosemide (Lasix) 20 mg 1X ONCE IVP Last administered on 12/14/18at 14:02; Start 12/14/18 at 13:00; Stop 12/14/18 at 13:01; Status DC Potassium Chloride (Klor-Con) 20 meq 1X ONCE PO Last administered on 12/14/18at 14:02; Start 12/14/18 at 13:00; Stop 12/14/18 at 13:01; Status DC Furosemide (Lasix) 20 mg DAILY IVP Last administered on 12/15/18at 07:41; Start 12/15/18 at 09:00 Potassium Chloride (Klor-Con) 20 meq DAILYWBKFT PO Last administered on 12/15/18at 07:41; Start 12/15/18 at 08:00; Stop 12/15/18 at 08:18; Status DC Diphenhydramine HCl (Benadryl) 25 mg PRN QHS PRN PO INSOMNIA Last administered on 12/14/18at 21:48; Start 12/14/18 at 21:45 Diphenhydramine HCl (Benadryl) 25 mg STK-MED ONCE PO ; Start 12/14/18 at 21:47; Stop 12/14/18 at 21:48; Status DC Potassium Chloride (Klor-Con) 40 meq ONCE ONCE PO Last administered on 12/15/18at 07:41; Start 12/15/18 at 07:30; Stop 12/15/18 at 07:31; Status DC Potassium Chloride (Klor-Con) 40 meq DAILYWBKFT PO ; Start 12/15/18 at 08:30 Loperamide HCl (Imodium) 2 mg PRN Q2HR PRN PO DIARRHEA Last administered on 12/15/18at 08:51; Start 12/15/18 at 08:15 Vancomycin HCl (Vanco Per Pharmacy) 1 each PRN DAILY PRN MC SEE COMMENTS; Start 12/15/18 at 12:45; Stop 12/15/18 at 12:56; Status DC Vancomycin HCl 2 gm/Sodium Chloride 500 ml @ 250 mls/hr 1X ONCE IV ; Start 12/15/18 at 13:00; Stop 12/15/18 at 13:00; Status DC Linezolid 300 ml @ 300 mls/hr Q12HR IV ; Start 12/15/18 at 13:00 Active Scripts Active Reported Spiriva (Tiotropium Stirum) 18 Mcg Cap.w.dev 1 Cap IH DAILY Visine (Tetrahydrozoline HCl) 15 Ml Drops 15 Ml OP PRN PRN Nystatin 15 Gm Powder 1 Nayeli TP BID Spiriva (Tiotropium Stirum) 18 Mcg Cap.w.dev 18 Mcg IH DAILY Acetaminophen 500 Mg Tablet 2 Tab PO HS Lovastatin 40 Mg Tablet 40 Mg PO HS Norvasc (Amlodipine Besylate) 5 Mg Tablet 1 Tab PO HS Levothyroxine Sodium 88 Mcg Tablet 88 Mcg PO DAILYAC Labetalol Hcl 100 Mg Tablet 1 Tab PO BID Losartan Potassium 100 Mg Tablet 100 Mg PO DAILY Allergies: Coded Allergies: No Known Drug Allergies (Unverified , 12/12/18) VITALS Vital Signs Date Time Temp Pulse Resp B/P (MAP) Pulse Ox O2 Delivery O2 Flow Rate FiO2 12/15/18 10:45 98 Nasal Cannula 2.0 12/15/18 10:00 98.7 101 158/67 (97) 12/15/18 08:11 22 Labs Laboratory Tests Test 12/14/18 06:00 12/14/18 11:53 12/15/18 06:10 12/15/18 12:05 White Blood Count 12.2 x10^3/uL (4.0-11.0) 11.3 x10^3/uL (4.0-11.0) Red Blood Count 3.27 x10^6/uL (3.50-5.40) 3.80 x10^6/uL (3.50-5.40) Hemoglobin 10.2 g/dL (12.0-15.5) 11.7 g/dL (12.0-15.5) Hematocrit 30.8 % (36.0-47.0) 35.7 % (36.0-47.0) Mean Corpuscular Volume 94 fL (79-100) 94 fL (79-100) Mean Corpuscular Hemoglobin 31 pg (25-35) 31 pg (25-35) Mean Corpuscular Hemoglobin Concent 33 g/dL (31-37) 33 g/dL (31-37) Red Cell Distribution Width 14.8 % (11.5-14.5) 14.6 % (11.5-14.5) Platelet Count 182 x10^3/uL (140-400) 285 x10^3/uL (140-400) Sodium Level 141 mmol/L (136-145) 143 mmol/L (136-145) Potassium Level 3.6 mmol/L (3.5-5.1) 3.3 mmol/L (3.5-5.1) 4.1 mmol/L (3.5-5.1) Chloride Level 110 mmol/L (98-107) 108 mmol/L (98-107) Carbon Dioxide Level 20 mmol/L (21-32) 25 mmol/L (21-32) Anion Gap 11 (6-14) 10 (6-14) Blood Urea Nitrogen 22 mg/dL (7-20) 16 mg/dL (7-20) Creatinine 1.3 mg/dL (0.6-1.0) 1.3 mg/dL (0.6-1.0) Estimated GFR (Cockcroft-Gault) 39.4 39.4 BUN/Creatinine Ratio 17 (6-20) 12 (6-20) Glucose Level 142 mg/dL (70-99) 95 mg/dL (70-99) Calcium Level 8.6 mg/dL (8.5-10.1) 9.3 mg/dL (8.5-10.1) Total Bilirubin 0.5 mg/dL (0.2-1.0) 0.5 mg/dL (0.2-1.0) Aspartate Amino Transf (AST/SGOT) 35 U/L (15-37) 48 U/L (15-37) Alanine Aminotransferase (ALT/SGPT) 36 U/L (14-59) 54 U/L (14-59) Alkaline Phosphatase 128 U/L (46-116) 164 U/L (46-116) Total Protein 5.9 g/dL (6.4-8.2) 7.1 g/dL (6.4-8.2) Albumin 2.0 g/dL (3.4-5.0) 2.5 g/dL (3.4-5.0) Albumin/Globulin Ratio 0.5 (1.0-1.7) 0.5 (1.0-1.7) Glucose (Fingerstick) 212 mg/dL (70-99) BX-Tnh-C-Type Natriuretic Peptide 3140 pg/mL (0-449) Assessment/Plan 1. Acute on chronic diastolic heart failure: Improved with diuresis. 2-D echo showed normal LV systolic function. Ischemic workup in the form of stress test could be considered as an outpatient. 2. Community-acquired pneumonia, UTI/sepsis: Continue antibiotics per IM 3. Hypertension: Continue current medical regimen 4. Hyperlipidemia: Continue statin therapy 5. Hypothyroidism: Continue levothyroxine Thank you for your consultation LUZ HOLMAN MD Dec 15, 2018 13:09
[2018-12-15] MEDS ORDERED: ASPIRIN 325 MG TABLET ONE (14:40)
[2018-12-15] MEDS ORDERED: ASPIRIN 325 MG TABLET PO ONE (15:00)
--- NOTE | 2018-12-15 15:53 | CARD ---
MR#: [id number] Date of Study: 12/15/2018 Ordering Physician: KEON MAYA, Referring Physician: KEON MAYA, Tech: Angelina Winn ANTHONY APPROVED REPORT EXAM: Two-dimensional and M-mode echocardiogram with Doppler and color Doppler. Other Information Quality : Technically LimitedHR: 82bpm Rhythm : NSRTechnically limited study due to body habitus. INDICATION Dyspnea 2D DIMENSIONS RVDd3.1 (2.9-3.5cm)Left Atrium(2D)3.9 (1.6-4.0cm) IVSd1.2 (0.7-1.1cm)Aortic Root(2D)3.1 (2.0-3.7cm) LVDd3.9 (3.9-5.9cm)LVOT Diameter2.0 (1.8-2.4cm) PWd0.8 (0.7-1.1cm)LVDs2.4 (2.5-4.0cm) FS (%) 38.2 %SV45.3 ml M-Mode DIMENSIONS Left Atrium(MM)3.40 (2.5-4.0cm)Aortic Root2.79 (2.2-3.7cm) Aortic Valve AoV Peak Julio César.222.2cm/sAoV VTI37.8cm AO Peak GR.19.7mmHgLVOT Peak Julio César.116.5cm/s LVOT VTI 23.91cmAO Mean GR.8mmHg TANA (VMAX)1.10if2OSU (VTI)1.89cm2 Mitral Valve MV E Slpbiptr910.7cm/sMV E Peak Gr.9mmHg MV DECEL [id number] A Drjpoack434.4cm/s MV E Mean Gr.4mmHgE/A Ratio0.9 Pulmonary Valve PV Peak Pevmoczp802.2cm/sPV Peak Grad.5mmHg Tricuspid Valve TR P. Kpdwvuvo669gr/sRAP GWKJZJDL0flEz TR Peak Gr.45wiWbRHNI72bgRf LEFT VENTRICLE The left ventricle is normal size. There is borderline concentric left ventricular hypertrophy. The l eft ventricular systolic function is normal and the ejection fraction is within normal range. The Eje ction Fraction is 55-60%. There is normal LV segmental wall motion. Transmitral Doppler flow pattern is Grade I-abnormal relaxation pattern. RIGHT VENTRICLE The right ventricle is normal size. There is normal right ventricular wall thickness. The right ventr icular systolic function is normal. ATRIA The left atrium is borderline dilated. The right atrium is mildly dilated. The interatrial septum is intact with no evidence for an atrial septal defect or patent foramen ovale as noted on 2-D or Dopple r imaging. AORTIC VALVE The aortic valve is calcified but opens well. The aortic valve is trileaflet. Doppler and Color Flow revealed trace aortic regurgitation. There is no significant aortic valvular stenosis. There is no ao rtic valvular vegetation. MITRAL VALVE Mitral annular calcification is mild to moderate. There is no evidence of mitral valve prolapse. Ther e is no mitral valve stenosis. Doppler and Color-flow revealed moderate mitral regurgitation. TRICUSPID VALVE The tricuspid valve is normal in structure and function. Doppler and Color Flow revealed mild tricusp id regurgitation. The PA pressure was estimated at 38 mmHg. There is no tricuspid valve prolapse or v egetation. There is no tricuspid valve stenosis. PULMONIC VALVE The pulmonic valve is not well visualized. GREAT VESSELS The aortic root is normal in size. The ascending aorta is normal in size. The IVC is normal in size a nd collapses >50% with inspiration. PERICARDIAL EFFUSION There is no evidence of significant pericardial effusion. Critical Notification Critical Value: No <Conclusion> The left ventricle is normal size. The left ventricular systolic function is normal and the ejection fraction is within normal range. The Ejection Fraction is 55-60%. There is borderline concentric left ventricular hypertrophy. There is no significant aortic valvular stenosis. Doppler and Color Flow revealed trace aortic regurgitation. Doppler and Color-flow revealed moderate mitral regurgitation. Doppler and Color Flow revealed mild tricuspid regurgitation. The PA pressure was estimated at 38 mmHg. Signed by : Elia Knight MD Electronically Approved : 12/15/2018 15:53:01
--- NOTE | 2018-12-15 17:09 | RAD ---
Examination: DOPPLER CAROTID BILAT History: Transient ischemic attack Comparison/Correlation: None Technique: Duplex sonography of the cervical portion of both carotid arteries was performed. Real-time grayscale, color flow Doppler, and Doppler spectral waveform analysis is performed. Findings: Right side: Peak systolic flow velocity of the CCA is 63 cm/sec. Peak systolic flow velocity of the ICA is 34 cm/sec. The ICA/CCA ratio is 0.9. Peak end diastolic flow velocity of the ICA is 22 cm/sec. The peak systolic velocity of the ECA is 47 cm/sec. Mixed plaque is noted involving the right carotid bulb of small quantity. Left side: Peak systolic flow velocity of the CCA is 73 cm/sec. Peak systolic flow velocity of the ICA is 58 cm/sec. The ICA/CCA ratio is 0.79. Peak end diastolic flow velocity of the ICA is 16 cm/sec. Peak systolic flow velocity of the ECA is 51 cm/sec. Mixed plaque involves the left carotid bulb of moderate quantity.. Minimal mixed plaque extends into the proximal right internal carotid artery beyond the bulb. Vertebral arteries: Bilateral vertebral arteries demonstrate antegrade flow. IMPRESSION: No hemodynamically significant internal carotid artery stenosis is identified. Mixed plaque involving the carotid bulbs noted. PQRS Compliance Statement - Stenosis calculations for CT, MR and conventional angiography are based upon measurement of the distal ICA diameter in accordance with the NASCET methodology. Stenosis calculations for carotid ultrasound studies are derived from validated velocity criteria which are known to correlate with the NASCET methodology. Electronically signed by: Nando Cunha MD (12/15/2018 5:06 PM) [facility]
[2018-12-15 17:36] VITALS: BP 117/66
[2018-12-15 19:20] VITALS: BP 127/62
--- NOTE | 2018-12-15 20:11 | PN ---
DATE: 12/15/2018 SUBJECTIVE: The patient is sitting comfortably in her chair, eating her lunch comfortably, in no apparent distress. She definitely looks much better, less tachypneic. PHYSICAL EXAMINATION: GENERAL: When I examined her, she was pale. No jaundice, cyanosis or thyromegaly. No jugular venous distention. No limb edema. VITAL SIGNS: Her heart rate was 82, blood pressure 155/65. Her temperature was 97.8, respiratory rate was 22 and oxygen saturation was 93% on 1 liter of oxygen. HEAD, EYES, EARS, NOSE AND THROAT: Showed normocephalic, atraumatic. NECK: Supple. HEART: Showed normal first and second heart sounds. No gallop, rub or murmur. CHEST: Clear to auscultation. No crepitation or rhonchi. ABDOMEN: Distended, soft, nontender. No guarding or rigidity. No organomegaly. All hernial orifice intact. Bowel sounds normal. NEUROLOGIC: She was awake, alert, responding appropriately. All cranial nerves intact. She moves extremities without difficulty. She actually managed to walk with a walker for a short distance and she seemed to be generally improving. LABORATORY DATA: Her lab work this morning showed a serum sodium 143, potassium 4.1, chloride 108, bicarbonate 25, anion gap of 10, BUN 16, creatinine 1.3, estimated GFR was 39 mL per minute. Her glucose was 95, calcium was 9.3. Total bilirubin normal. AST and alkaline phosphatase slightly elevated. Her beta natriuretic peptide was 3140. Total protein was 7.1, albumin was 2.5. Her white cell count was 11,000, hemoglobin 11.7, hematocrit 36, MCV 94 and platelet count 285,000. Her nasal screen for MRSA PCR was negative. ASSESSMENT AND PLAN: In summary, this is an 78-year-old female patient who was admitted with; 1. Severe sepsis, likely pneumonia as well as urinary tract infection and she grew Escherichia coli in her urine culture and she has gram-negative rods in her blood culture and gram-positive cocci in her sputum. 2. Chronic obstructive pulmonary disease. 3. Acute on chronic hypoxic respiratory failure. 4. Acute on chronic kidney injury. 5. She probably has also acute on chronic diastolic congestive heart failure. I did treat her with Lasix 20 mg yesterday again this morning and she seemed to be much improved. We did consult the ornamental ironworker helper. I will probably add Zyvox given that her impaired kidney function and discontinue the vancomycin. KEON MAYA MD DR: CADEN/maisha JOB#: [id number] / [id number]
[2018-12-15] MEDS: ATORVASTATIN CALCIUM 10 MG TABLET. PO SCH (21:06)
[2018-12-15 23:08] VITALS: BP 133/65
[2018-12-16] MEDS: diphenhydrAMINE HCL 25 MG CAPSULE PO PRN (00:10)
[2018-12-16] MEDS: PIPERACILLIN/TAZOBACTAM 2.25 GM in IV NORMAL SALINE 50ML 50 ML IV SCH ×4 (04:32→22:22)
[2018-12-16] MEDS: IPRATRPIUM/ALBUTEROL 0.5/2.5MG 3 ML NEBU. NEB SCH ×4 (05:51→20:10)
[2018-12-16] MEDS: LEVOTHYROXINE 88 MCG TABLET PO SCH (06:25)
[2018-12-16 06:28] VITALS: BP 141/62
[2018-12-16 06:45] LABS: HEMATOCRIT 33.9 % (36.0-47.0); HEMOGLOBIN 11.1 g/dL (12.0-15.5); RED BLOOD COUNT 3.62 x10^6/uL (3.50-5.40); RED CELL DISTRIBUTION WIDTH 14.5 % (11.5-14.5); WHITE BLOOD COUNT 14.4 x10^3/uL (4.0-11.0)
[2018-12-16 06:58] LABS: ALBUMIN 2.5 g/dL (3.4-5.0); ALBUMIN/GLOBULIN RATIO 0.6 (1.0-1.7); CALCIUM 9.3 mg/dL (8.5-10.1); CREATININE 1.3 mg/dL (0.6-1.0); GFR 39.4; POTASSIUM 3.8 mmol/L (3.5-5.1); TOTAL BILIRUBIN 0.6 mg/dL (0.2-1.0); TOTAL PROTEIN 6.8 g/dL (6.4-8.2)
[2018-12-16] MEDS: NYSTATIN TOPICAL POWDER 15GM BOTTLE. TP SCH ×2 (08:24→20:39)
[2018-12-16] MEDS: ASPIRIN 325 MG TABLET PO SCH (08:25)
[2018-12-16] MEDS: LACTOBACILLUS RHAMNOSUS GG 1 CAPSULE. PO SCH ×2 (08:26→20:37)
[2018-12-16] MEDS: ACETAMINOPHEN 325 MG TABLET PO PRN ×2 (08:26→22:22)
[2018-12-16] MEDS: POTASSIUM CHLORIDE 20 MEQ TABLET.ER. PO SCH (08:26)
[2018-12-16] MEDS: BENZONATATE 100 MG CAPSULE. PO SCH ×3 (08:26→20:38)
[2018-12-16] MEDS: LABETALOL HCL 100 MG TABLET PO SCH ×2 (08:28→20:39)
[2018-12-16] MEDS: FUROSEMIDE 20 MG/2 ML VIAL IVP SCH (08:30)
[2018-12-16] MEDS ORDERED: ONDANSETRON PF 4 MG/2 ML VIAL. IV PRN (09:15)
--- NOTE | 2018-12-16 11:14 | PDOC ---
PROGRESS NOTES Diagnosis Problem Problems Medical Problems: (1) Chronic kidney disease Status: Acute (2) COPD (chronic obstructive pulmonary disease) Status: Acute (3) Severe sepsis Status: Acute (4) Urinary tract infection Status: Acute Assessment 1. Acute on chronic diastolic heart failure: Improved with diuresis. 2-D echo showed normal LV systolic function. Ischemic workup in the form of stress test could be considered as an outpatient. 2. Community-acquired pneumonia, UTI/sepsis: Continue antibiotics per IM 3. Hypertension: Continue current medical regimen 4. Hyperlipidemia: Continue statin therapy 5. Hypothyroidism: Continue levothyroxine Subjective Feeling much better. Dyspnea improved. Objective Vital Signs Date Time Temp Pulse Resp B/P (MAP) Pulse Ox O2 Delivery O2 Flow Rate FiO2 12/16/18 10:14 97 Nasal Cannula 2.0 12/16/18 08:28 76 142/75 12/16/18 06:28 99.2 18 Intake and Output 12/16/18 06:59 Intake Total 380 ml Output Total 550 ml Balance -170 ml IV Total 380 ml Output Urine Total 550 ml # Voids 3 Abdomen: Soft, No tenderness Heart: Regular rate Extremities: No edema General: Alert, No acute distress HEENT: Atraumatic Lungs: Clear to auscultation Neck: Supple Psych/Mental Status: Mood NL Review of Relevant I have reviewed the following items miko (where applicable) has been applied. Labs Laboratory Tests Test 12/15/18 12:05 12/16/18 05:37 Potassium Level 4.1 mmol/L (3.5-5.1) 3.8 mmol/L (3.5-5.1) White Blood Count 14.4 x10^3/uL (4.0-11.0) H Red Blood Count 3.62 x10^6/uL (3.50-5.40) Hemoglobin 11.1 g/dL (12.0-15.5) L Hematocrit 33.9 % (36.0-47.0) L Mean Corpuscular Volume 94 fL (79-100) Mean Corpuscular Hemoglobin 31 pg (25-35) Mean Corpuscular Hemoglobin Concent 33 g/dL (31-37) Red Cell Distribution Width 14.5 % (11.5-14.5) Platelet Count 291 x10^3/uL (140-400) Sodium Level 140 mmol/L (136-145) Chloride Level 105 mmol/L (98-107) Carbon Dioxide Level 26 mmol/L (21-32) Anion Gap 9 (6-14) Blood Urea Nitrogen 14 mg/dL (7-20) Creatinine 1.3 mg/dL (0.6-1.0) H Estimated GFR (Cockcroft-Gault) 39.4 BUN/Creatinine Ratio 11 (6-20) Glucose Level 105 mg/dL (70-99) H Calcium Level 9.3 mg/dL (8.5-10.1) Total Bilirubin 0.6 mg/dL (0.2-1.0) Aspartate Amino Transferase (AST) 30 U/L (15-37) Alanine Aminotransferase (ALT) 46 U/L (14-59) Alkaline Phosphatase 146 U/L (46-116) H Total Protein 6.8 g/dL (6.4-8.2) Albumin 2.5 g/dL (3.4-5.0) L Albumin/Globulin Ratio 0.6 (1.0-1.7) L Triglycerides Level 137 mg/dL (0-150) Cholesterol Level 114 mg/dL (0-200) LDL Cholesterol, Calculated 65 mg/dL (0-100) VLDL Cholesterol, Calculated 27 mg/dL (0-40) Non-HDL Cholesterol Calculated 92 mg/dL (0-129) HDL Cholesterol 22 mg/dL (40-60) L Cholesterol/HDL Ratio 5.0 Microbiology 12/12/18 Blood Culture - Preliminary, Resulted NO GROWTH AFTER 3 DAYS... 12/13/18 - Final, Resulted 12/13/18 - Final, Resulted 12/13/18 - Final, Resulted 12/13/18 - Final, Resulted 12/13/18 - Final, Resulted 12/13/18 Sputum Culture, Resulted Pending 12/13/18 Sputum Result 1, Resulted Pending 12/12/18 Urine Culture - Final, Complete 12/12/18 Urine Culture Result 1 (ASHISH) - Final, Complete 12/12/18 Antimicrobic Susceptibility - Final, Complete Medications Current Medications Medications (Trade) Dose Ordered Sig/Nicolette Route PRN Reason Start Time Stop Time Status Last Admin Dose Admin Linezolid 300 ml @ 300 mls/hr Q12HR IV 12/15/18 13:00 12/16/18 08:24 Aspirin (Yazan Aspirin) 325 mg 1X ONCE PO 12/15/18 15:00 12/15/18 15:01 DC 12/15/18 14:45 Aspirin (Yazan Aspirin) 325 mg DAILYWBKFT PO 12/16/18 08:00 12/16/18 08:25 Ondansetron HCl (Zofran) 4 mg PRN Q6HRS PRN IV NAUSEA/VOMITING 12/16/18 09:15 12/16/18 09:29 Vitals/I & O Vital Signs Date Time Temp Pulse Resp B/P (MAP) Pulse Ox O2 Delivery O2 Flow Rate FiO2 12/16/18 10:14 97 Nasal Cannula 2.0 12/16/18 08:28 76 142/75 12/16/18 06:28 99.2 18 I & O 12/15/18 12/15/18 12/16/18 14:59 22:59 06:59 Intake Total 380 ml Output Total 550 ml Balance -170 ml LUZ HOLMAN MD Dec 16, 2018 11:14
[2018-12-16 11:43] VITALS: BP 114/60
[2018-12-16] MEDS ORDERED: ALPRAZolam 0.5 MG TABLET PO PRN (13:00)
[2018-12-16 15:08] VITALS: BP 118/60
[2018-12-16 19:15] VITALS: BP 128/65
[2018-12-16] MEDS: ATORVASTATIN CALCIUM 10 MG TABLET. PO SCH (20:38)
[2018-12-16 23:30] VITALS: BP 124/64
--- NOTE | 2018-12-17 02:43 | PN ---
DATE: 12/16/2018 SUBJECTIVE: The patient is resting flat in bed, in no apparent distress. She did have some nausea this morning, but no further episodes of shortness of breath, cough or phlegm. PHYSICAL EXAMINATION: GENERAL: When I examined her, she looked pale, but no jaundice, cyanosis, or thyromegaly. No jugular venous distension. No limb edema. VITAL SIGNS: His heart rate was 76, blood pressure 142/75, temperature was 99.2, respiratory rate was 18 and oxygen saturation was 96% on 2 liters of oxygen. HEAD, EYES, EARS, NOSE, AND THROAT: Showed normocephalic, atraumatic. NECK: Supple. HEART: Showed normal first and second heart sounds with no gallop, rub or murmur. CHEST: Clear to auscultation. No crepitation or rhonchi. ABDOMEN: Slightly distended, soft, nontender. NEUROLOGIC: She is awake, alert, responding appropriately. All cranial nerves intact. She moves extremities without difficulty. Her intake over the last 24 hours was 1300, output was 3050. LABORATORY DATA: Her lab work this morning showed a serum sodium 140, potassium 3.8, chloride 105, bicarbonate 26, anion gap of 9, BUN 14, creatinine 1.3, estimated GFR was 39 mL per minute. Her glucose 105, calcium was 9.3. Total bilirubin, AST, ALT were normal. Alkaline phosphatase slightly elevated. Her total protein was 6.8, albumin was 2.5. Serum triglycerides 137, total cholesterol 114, LDL cholesterol 65, VLDL was 27, HDL cholesterol was 22 and the ratio was 5. Her sputum culture has grown gram-positive cocci. The identification and sensitivity is still pending at the time of this dictation. Her urine culture has grown more than 100,000 colony forming units per mL of Escherichia coli sensitive to an oral antibiotic. Her blood culture has grown gram-negative rods in 1 of 4 bottles. Again, the identification and sensitivity is still pending at the time of this dictation. ASSESSMENT: 1. Severe sepsis, likely due to community-acquired pneumonia as well as urinary tract infection. She grew Escherichia coli in her urine and her blood culture has grown gram-negative rods, identification and sensitivity is still pending. Her sputum culture has gram-positive cocci. She is now on both Zyvox and Zosyn. 2. Chronic obstructive pulmonary disease exacerbation. 3. Acute on chronic hypoxic respiratory failure. 4. Acute on chronic kidney injury. 5. Acute on chronic diastolic congestive heart failure. The patient has responded very well to Lasix as well as Zyvox. She is afebrile, hemodynamically stable. PLAN: My plan is to continue with current plan of management. Continue with IV Lasix as well as IV linezolid and piperacillin and tazobactam. We will await the E. coli are sensitive to piperacillin and tazobactam. Continue with physical and occupational therapy. KEON MAYA MD DR: CADEN/maisha JOB#: [id number] / [id number]
[2018-12-17] MEDS: ACETAMINOPHEN 325 MG TABLET PO PRN (05:11)
[2018-12-17] MEDS: PIPERACILLIN/TAZOBACTAM 2.25 GM in IV NORMAL SALINE 50ML 50 ML IV SCH (05:11)
[2018-12-17] MEDS: LEVOTHYROXINE 88 MCG TABLET PO SCH (05:11)
[2018-12-17 05:15] VITALS: BP 116/59
[2018-12-17] MEDS: IPRATRPIUM/ALBUTEROL 0.5/2.5MG 3 ML NEBU. NEB SCH ×2 (05:24→10:15)
[2018-12-17 07:15] LABS: BASO # 0.1 x10^3/uL (0.0-0.2); BASO % 1 % (0-3); EOS # 0.7 x10^3/uL (0.0-0.7); EOS % 5 % (0-3); HEMATOCRIT 33.4 % (36.0-47.0); LYMPH # 2.3 x10^3/uL (1.0-4.8); LYMPH % 18 % (24-48); MEAN CORPUSCULAR HEMOGLOBIN 31 pg (25-35); MEAN CORPUSCULAR HGB CONC 33 g/dL (31-37); MEAN CORPUSCULAR VOLUME 93 fL (79-100); MONO # 1.3 x10^3/uL (0.0-1.1); MONO % 10 % (0-9); NEUT # 8.2 x10^3uL (1.8-7.7); NEUT % 65 % (31-73); PLATELET COUNT 335 x10^3/uL (140-400); RED BLOOD COUNT 3.57 x10^6/uL (3.50-5.40); RED CELL DISTRIBUTION WIDTH 14.3 % (11.5-14.5); WHITE BLOOD COUNT 12.6 x10^3/uL (4.0-11.0)
[2018-12-17 07:32] LABS: ALBUMIN 2.5 g/dL (3.4-5.0); ALBUMIN/GLOBULIN RATIO 0.6 (1.0-1.7); CALCIUM 9.3 mg/dL (8.5-10.1); CREATININE 1.4 mg/dL (0.6-1.0); GFR 36.2; POTASSIUM 4.1 mmol/L (3.5-5.1); TOTAL BILIRUBIN 0.5 mg/dL (0.2-1.0); TOTAL PROTEIN 6.7 g/dL (6.4-8.2)
[2018-12-17 08:09] LABS: % BANDS 2 % (0-9); % BASOS 2 % (0-3); % EOS 5 % (0-5); % LYMPHS 16 % (24-48); % MONOS 8 % (0-10); % SEGS 67 % (35-66); PLT ESTIMATE ADEQUATE (ADEQUATE); TOXIC GRANULATION MOD
[2018-12-17] MEDS: POTASSIUM CHLORIDE 20 MEQ TABLET.ER. PO SCH (08:49)
[2018-12-17] MEDS: NYSTATIN TOPICAL POWDER 15GM BOTTLE. TP SCH (08:49)
[2018-12-17] MEDS: ASPIRIN 325 MG TABLET PO SCH (08:51)
[2018-12-17] MEDS: LACTOBACILLUS RHAMNOSUS GG 1 CAPSULE. PO SCH (08:51)
[2018-12-17] MEDS: BENZONATATE 100 MG CAPSULE. PO SCH (08:51)
[2018-12-17 08:52] VITALS: BP 116/59
[2018-12-17] MEDS: LABETALOL HCL 100 MG TABLET PO SCH (08:52)
[2018-12-17] MEDS: FUROSEMIDE 20 MG/2 ML VIAL IVP SCH (08:52)
[2018-12-17] MEDS ORDERED: LINE600T PO (09:52)
[2018-12-17] MEDS ORDERED: AMOX1TAB58 PO (09:52)
[2018-12-17] MEDS ORDERED: POTA20TA4 PO (10:00)
[2018-12-17] MEDS ORDERED: ALPR0.5T6 PO (10:00)
[2018-12-17] MEDS ORDERED: FURO-69 PO (10:00)
--- NOTE | 2018-12-17 10:03 | DISCH ---
HOME HEALTH DISCHARGE/MEDS DISCHARGE INFORMATION: Discharge Date: Dec 17, 2018 Final Diagnosis: Problems Medical Problems: (1) Chronic kidney disease Status: Acute (2) COPD (chronic obstructive pulmonary disease) Status: Acute (3) Severe sepsis Status: Acute (4) Urinary tract infection Status: Acute Condition on Discharge: Stable CODE STATUS: Code Status: Full HOME HEALTH: Face to Face: I certify this patient is under my care and that I, or a nurse practitioner or physician's assistant toddler teacher working with me, had a face to face encounter that meets the physician face to face encounter requirements with this patient on 12/17/18 Medical Condition(s): COPD, Pneumonia, Other Half-Way For: Medication Management Physical Therapy For: Evalulation/Treatment Occupational Therapy For: Evaluation/Treatment POST DISCHARGE ORDERS: Activity Instructions for Disc: Resume previous activity DIET AFTER DISCHARGE: Cardiac TREATMENT/EQUIPMENT ORDERS: Adaptive Equipment Issued: Walker CERTIFICATION STATEMENT: Certification Statement: Based on the above finding, I certify that this patient is confined to the home and needs intermittent half-way care, physical therapy and/or speech therapy, or continues to need occupational therapy.~ This patient is under my care, and I have initiated the establishment of the plan of care.~ This patient will be followed by myself or a community physician who will periodically review the plan of care. DISCHARGE MEDICATIONS: Home Meds Active Scripts Alprazolam (ALPRAZOLAM) 0.5 Mg Tablet, 1 TAB PO QHS for ANXIETY for 30 Days, #30 TAB Prov:KEON MAYA MD 12/17/18 Potassium Chloride (KLOR-CON M20) 20 Meq Tab.er.prt, 1 TAB PO DAILY for CHF for 30 Days, #30 TAB 1 Refill Prov:KEON MAYA MD 12/17/18 Furosemide (LASIX) 20 Mg Tablet, 1 TAB PO DAILY for CHF for 30 Days, #30 TAB 1 Refill Prov:KEON MAYA MD 12/17/18 Linezolid (ZYVOX) 600 Mg Tablet, 600 MG PO BID PRN for NEUMONIA for 7 Days, #14 TAB Prov:KEON MAYA MD 12/17/18 Amoxicillin/Potassium Clav (AUGMENTIN 500-125 TABLET) 1 Each Tablet, 1 TAB PO BID for UTI, #14 TAB Prov:KEON MAYA MD 12/17/18 Reported Medications Tiotropium Warne (SPIRIVA) 18 Mcg Cap.w.dev, 1 CAP IH DAILY for SOA, #30 CAP 3 Refills 12/13/18 Tetrahydrozoline HCl (Visine) 15 Ml Drops, 15 ML OP PRN PRN for ITCHING EYES, DROP 12/13/18 Nystatin (NYSTATIN) 15 Gm Powder, 1 VINNIE TP BID for PREVENT SKIN BREAKDOWN, #1 BOTTLE 12/13/18 Tiotropium Warne (SPIRIVA) 18 Mcg Cap.w.dev, 18 MCG IH DAILY for COPD 12/13/18 Acetaminophen (ACETAMINOPHEN) 500 Mg Tablet, 2 TAB PO HS for Pain, #60 TAB 1 Refill 12/13/18 Lovastatin (LOVASTATIN) 40 Mg Tablet, 40 MG PO HS for CHOLESTEROL, TAB 12/12/18 Amlodipine Besylate (NORVASC) 5 Mg Tablet, 1 TAB PO HS for BLOOD PRESSURE, #30 TAB 5 Refills 12/12/18 Levothyroxine Sodium (LEVOTHYROXINE SODIUM) 88 Mcg Tablet, 88 MCG PO DAILYAC for THYROID SUPPLEMENT, #30 TAB 0 Refills 12/12/18 Labetalol Hcl (LABETALOL HCL) 100 Mg Tablet, 1 TAB PO BID for blood pressure, #60 TAB 5 Refills 12/12/18 Losartan Potassium (LOSARTAN POTASSIUM) 100 Mg Tablet, 100 MG PO DAILY for HYPERTENSION, TAB 12/12/18 KEON MAYA MD Dec 17, 2018 10:03
--- NOTE | 2018-12-17 17:07 | DS ---
DATE OF DISCHARGE: 12/17/2018 HISTORY OF PRESENT ILLNESS: The patient is an 78-year-old female patient, who was admitted with generalized weakness and lethargy. Her symptoms started about 3 days prior to admission and worsened on the day of admission. She was extremely weak, unable to stand. She also complained of shortness of breath, but denies any chest pain. In the Emergency Room, she was found to have marked leukocytosis. Chest x-ray showed she has bilateral perihilar interstitial prominence, which may reflect interstitial edema versus interstitial pneumonitis, and further investigation showed that she has also finding on her urinalysis consistent with urinary tract infection and therefore she was admitted to the ICU, was started on IV fluid and treated for possible pneumonitis as well as urinary tract infection. Eventually, her urine culture has grown Escherichia coli that is sensitive to all antibiotics. She also grew Escherichia coli in the blood and has gram-positive cocci in her sputum culture; although, I do not have the final sensitivity. Identification and sensitivity is still pending at the time of this dictation. The patient was treated with IV Zyvox and Zosyn. She also noted to have leoby-tj-stkoxsg kidney injury. Her creatinine when she arrived was 1.8, came down to 1.4. She was also diagnosed with kilir-jz-ohlguxj diastolic congestive heart failure, was treated with IV Lasix, and she did very well. As she remained hemodynamically stable and afebrile, a decision was made to be discharged home with home health. PHYSICAL EXAMINATION: GENERAL: When I saw her this morning, she was resting slightly propped up in bed, in no apparent respiratory distress. She is pale. No jaundice, cyanosis or thyromegaly. No jugular venous distention. No lower limb edema. VITAL SIGNS: Her heart rate was 71, blood pressure was 116/59, temperature was 96.6, respiratory rate was 18 and oxygen saturation was 98% on 2 L of oxygen. HEAD, EYES, EARS, NOSE AND THROAT: Normocephalic, atraumatic. NECK: Supple. HEART: Showed normal first and second heart sounds. No gallop, rub or murmur. CHEST: Clear to auscultation. No crepitation or rhonchi. ABDOMEN: Distended, soft, nontender. No guarding or rigidity. No organomegaly. All hernial orifices intact. Bowel sounds normal. NEUROLOGIC: She is awake, alert, responding appropriately. All cranial nerves intact. EXTREMITIES: She moves her extremities without difficulty. She ambulates with a walker. Her intake and output are incompletely recorded. LABORATORY DATA: Her lab work this morning showed a white cell count 12,600, hemoglobin 11, hematocrit 33, MCV 93, and platelet count of 335,000. Her chemistry showed a serum sodium 141, potassium 4.1, chloride 104, bicarbonate 27, anion gap of 10, BUN 14, creatinine 1.4, estimated GFR was 36 mL per minute. Her glucose was 97, calcium was 9.3. Total bilirubin, AST, ALT were normal. Alkaline phosphatase slightly elevated. Total protein was 6.7, albumin was 2.5. Her serum triglycerides 137, total cholesterol 114, LDL was 65, VLDL was 27, HDL was 22 and ratio was 5. DISCHARGE MEDICATIONS: She was discharged home with home health to continue on following medications: Alprazolam 0.5 mg at bedtime, amoxicillin/potassium clavulanate 500/125 one tablet twice a day with food for 7 days, Lasix 20 mg daily, (linezolid) Zyvox 600 mg twice a day for 7 days, potassium chloride 20 mEq once a day, Tylenol 1000 mg at bedtime, amlodipine 5 mg once a day, labetalol 100 mg twice a day, levothyroxine 88 mcg once a day, losartan potassium 100 mg daily, lovastatin 40 mg at bedtime, Nystatin powder twice a day, Visine to both eyes as needed for itching, Spiriva HandiHaler 1 inhalation once a day. FINAL DISCHARGE DIAGNOSES: 1. Severe sepsis, likely due to community-acquired pneumonia as well as urinary tract infection. She grew Escherichia coli in her urine and also she has gram-negative bacteremia. Her sputum culture has grown gram-positive cocci. She was treated with IV Zosyn and Zyvox and will be discharged home on Augmentin and Zyvox. 2. Bxwez-nw-ohiummc hypoxic respiratory failure. 3. Chronic obstructive pulmonary disease exacerbation. 4. Njiet-gw-jvfczzi kidney injury. 5. Kpmbv-ta-eywdrsn diastolic congestive heart failure. KEON MAYA MD DR: CADEN/maisha JOB#: [id number] / [id number]
== END 2018-12-17 11:45 | disposition home health service (06) | DRG 871 ==
LOC: ER 13:15 → ICU 16:37
PROVIDERS: ADMIT Internal Medicine; ATTEND Internal Medicine
DX: A41.9 Sepsis, unspecified organism (principal); I50.33 Acute on chronic diastolic (congestive) heart failure; J18.9 Pneumonia, unspecified organism; J96.21 Acute and chronic respiratory failure with hypoxia; I13.0 Hypertensive heart and chronic kidney disease with heart failure and stage 1 through stage 4 chronic kidney disease, or unspecified chronic kidney disease; J44.0 Chronic obstructive pulmonary disease with (acute) lower respiratory infection; J44.1 Chronic obstructive pulmonary disease with (acute) exacerbation; N17.9 Acute kidney failure, unspecified; N39.0 Urinary tract infection, site not specified; B96.20 Unspecified Escherichia coli [E. coli] as the cause of diseases classified elsewhere; B96.89 Other specified bacterial agents as the cause of diseases classified elsewhere; E03.9 Hypothyroidism, unspecified; E11.22 Type 2 diabetes mellitus with diabetic chronic kidney disease; E78.5 Hyperlipidemia, unspecified; M15.9 Polyosteoarthritis, unspecified; N18.3 Chronic kidney disease, stage 3 (moderate); R65.20 Severe sepsis without septic shock; Z82.49 Family history of ischemic heart disease and other diseases of the circulatory system; Z86.73 Personal history of transient ischemic attack (TIA), and cerebral infarction without residual deficits; Z90.49 Acquired absence of other specified parts of digestive tract; Z93.3 Colostomy status
CPT/HCPCS: 36415; 71045; 71046; 80053; 80061; 81001; 82947; 83605; 83880; 84132; 85007; 85025; 85027; 87040; 87070; 87077; 87086; 87186; 87205; 87493; 87641; 93005; 93306; 93880; 94640; 96361; 96365; G0238; J2020; J2405; J2543; J7613; J7620; P9612; Q0163; 97116; 97530; 97535; 99291-25; J7030

== ENCOUNTER → 2020-12-02 | Outpatient (CLI) | payer MEDICARE ==
[~2020-12-02] MED LIST: ACET500T68 PO; ALPR0.5T6 PO; AMLO5TAB4 PO; AMOX1TAB58 PO; FURO-69 PO; LABE100T5 PO; LEVO88TA4 PO; LINE600T12 PO; LOSA100T14 PO; LOVA40TA2 PO; NYST15PO9 TP; POTA20TA4 PO; TIOT18CA IH; [UNRECOGNIZED DRUG - CODE] OP
--- NOTE | 2020-12-02 11:38 | CARD ---
MR#: [id number] Date of Study: 12/02/2020 Ordering Physician: MAMIE WHITE, Referring Physician: MAMIE WHITE, Tech: Jumana Tsang, [facility] APPROVED REPORT EXAM: Two-dimensional and M-mode echocardiogram with Doppler and color Doppler. Other Information Quality : AverageHR: 69bpm INDICATION COPD Hypertension/HCVD RISK FACTORS Hyperlipidemia 2D DIMENSIONS Left Atrium(2D)2.8 (1.6-4.0cm)IVSd1.0 (0.7-1.1cm) Aortic Root(2D)3.1 (2.0-3.7cm)LVDd3.8 (3.9-5.9cm) LVOT Diameter1.8 (1.8-2.4cm)PWd1.0 (0.7-1.1cm) LVDs2.0 (2.5-4.0cm)FS (%) 43.6 % SV39.2 mlLVEF(%)71.8 (>50%) Aortic Valve AoV Peak Julio César.134.0cm/sAoV VTI32.6cm AO Peak GR.7.2mmHgLVOT Peak Julio César.117.9cm/s LVOT VTI 27.32cmAO Mean GR.4mmHg TANA (VMAX)2.55rv0RIN (VTI)2.11cm2 Mitral Valve MV E Vcfyvbam039.2cm/sMV E Peak Gr.9mmHg MV DECEL [id number] A Pnqfpcwc865.6cm/s MV E Mean Gr.3mmHgE/A Ratio0.8 Tricuspid Valve TR P. [id number]/sRAP [id number] TR Peak Gr.71aaBjDCOU58weWq LEFT VENTRICLE The left ventricle is normal size. There is borderline concentric left ventricular hypertrophy. The l eft ventricular systolic function is normal and the ejection fraction is within normal range. The Eje ction Fraction is 60-65%. There is normal LV segmental wall motion. Transmitral Doppler flow pattern is Grade I-abnormal relaxation pattern. RIGHT VENTRICLE The right ventricle is mildly dilated. There is normal right ventricular wall thickness. The right ve ntricular systolic function is normal. ATRIA The left atrium size is normal. The right atrium size is normal. The interatrial septum is intact wit h no evidence for an atrial septal defect or patent foramen ovale as noted on 2-D or Doppler imaging. AORTIC VALVE The aortic valve is calcifed with restricted leaflet motion. Doppler and Color Flow revealed trace ao rtic regurgitation. Calculated aortic valve area is 2.3 cm2 with maximum pressure gradient of 8 mmHg and mean pressure gradient of 4 mmHg. There is no significant aortic valvular stenosis. MITRAL VALVE The mitral valve is normal in structure and function. There is no evidence of mitral valve prolapse. There is no mitral valve stenosis. Doppler and Color-flow revealed trace mitral regurgitation. TRICUSPID VALVE The tricuspid valve is normal in structure and function. Doppler and Color Flow revealed trace tricus pid regurgitation with an estimated PAP of 39 mmHg. There is no tricuspid valve stenosis. PULMONIC VALVE The pulmonic valve is not well visualized. Doppler and Color Flow revealed trace pulmonic valvular re gurgitation. There is no pulmonic valvular stenosis. GREAT VESSELS The aortic root is normal in size. The ascending aorta is normal in size. The IVC is normal in size a nd collapses >50% with inspiration. PERICARDIAL EFFUSION There is no evidence of significant pericardial effusion. Critical Notification Critical Value: No <Conclusion> The left ventricular systolic function is normal and the ejection fraction is within normal range. Th e Ejection Fraction is 60-65%. There is normal LV segmental wall motion. Doppler and Color Flow revealed trace tricuspid regurgitation with an estimated PAP of 39 mmHg. Signed by : Mamie White, Electronically Approved : 12/02/2020 11:37:40
== END ==
LOC: ECHO 07:51
PROVIDERS: ATTEND Internal Medicine Cardiovascular Disease
DX: I11.9 Hypertensive heart disease without heart failure (principal); J44.9 Chronic obstructive pulmonary disease, unspecified
CPT/HCPCS: 93306

== ENCOUNTER → 2021-06-10 | Outpatient (CLI) | payer MEDICARE ==
[~2021-06-10] MED LIST changes: +POTA-121 PO; -POTA20TA4 PO
--- NOTE | 2021-06-10 12:19 | RAD ---
MR#: [id number] Date of Study: 06/10/2021 Ordering Physician: PRIETO WHITE, Referring Physician: PRIETO WHITE, Tech: Josefina Pillai RVT,[facility] APPROVED REPORT Patient Location : OUT-PATIENT Indications Lower Extremity Edema : Venous Insufficiency Limited grayscale images of the saphenofemoral junctions are grossly unremarkable without any evidenc e of thrombus. The right great saphenous vein measures 6 mm and the left great saphenous vein measur es 8 mm. Multiple varicosities are noted and the bilateral greater saphenous veins demonstrate reflux of great er than 1 second. Maximum reflux time in the right side of 3.7 seconds and a maximum reflux time on the left side of 1.7 seconds. Negative for reflux in the bilateral lesser saphenous veins. Greater Saphenous Veins (GSV) Significant venous relux noted in the RIGHT GSV at the following levels : Superficial Femoral Junctio n, Mid Thigh, Proximal Calf, Mid Calf, Distal Calf Significant venous relux noted in the LEFT GSV at the following levels : Superficial Femoral Junction , Proximal Thigh, Mid Thigh, Distal Thigh, Mid Calf, Distal Calf Lesser Saphenous Veins (LSV) Right Thigh extension noted : Yes Leftt Thigh extension noted : Yes Critical Notification Critical Value: No <Conclusion> 1. Positive for reflux in the bilateral greater saphenous veins Signed by : Prieto White, Electronically Approved : 06/10/2021 12:18:53
== END ==
LOC: US 10:32
PROVIDERS: ATTEND Internal Medicine Cardiovascular Disease
DX: I87.2 Venous insufficiency (chronic) (peripheral) (principal)
CPT/HCPCS: 93970

== ENCOUNTER → 2021-07-22 | Outpatient (CLI) | payer MEDICARE ==
--- NOTE | 2021-07-26 08:59 | RAD ---
MR#: [id number] Date of Study: 07/22/2021 Ordering Physician: MAMIE ARGUELLO, Referring Physician: MMAIE ARGUELLO, Tech: Josefina Pillai, [place], [facility] APPROVED REPORT Bilateral Lower Extremity Venous Study for DVT Patient Location: OUT-PATIENT Indications Lower Extremity Edema: Recent Venaseal Vein Imaging (Right) CFV (R): Compressible SFJ (R): Compressible FEM (R): Compressible POP (R): Compressible DFV (R): Compressible PTV (R): Compressible Peroneals (R): Compressible Vein Imaging (Left) CFV (L): Compressible SFJ (L): Compressible FEM (L): Compressible POP (L): Compressible DFV (L): Compressible PTV (L): Compressible Peroneals (L): Compressible Critical Notification Critical Value: No <Conclusion> FINDINGS Grayscale images of deep veins bilateral lower extremities were grossly normal without any evidence o f thrombus. The common femoral, saphenofemoral junction, superficial femoral, deep femoral and popli teal veins bilaterally were fully compressible. Spectral waveform and color duplex analysis of deep veins bilaterally within normal limits. Below the knee, there is spontaneous flow noted with choco sible vessels. The greater saphenous veins bilaterally appear to be successfully ablated. No eviden ce of deep venous thrombosis. CONCLUSIONS s/p Ablation of bilateral greater saphenous veins without any deep venous thrombosis. Signed by : Robb Marlow, Electronically Approved : 07/26/2021 08:58:53
== END ==
LOC: US 10:39
PROVIDERS: ATTEND Internal Medicine Cardiovascular Disease
DX: I87.2 Venous insufficiency (chronic) (peripheral) (principal); Z98.890 Other specified postprocedural states
CPT/HCPCS: 93970